=== PATIENT | female | born 1950 | race Caucasian/White ===

== ENCOUNTER 2023-12-09 10:04 | Day surgery (SDC) | payer MEDICARE ==
[2023-12-09] MEDS ORDERED: LORazepam 0.5 MG Tab PO ONE (11:30)
[2023-12-09] MEDS: LORazepam 0.5 MG Tab PO ONE (11:32)
[2023-12-09] MEDS: Polymyxin B/Trimethoprim 10 ML Bottle EYERT SCH (11:54)
[2023-12-09] MEDS: Brimonidine 0.2% Ophth Soln 5 ML Bottle EYERT SCH (11:58)
[2023-12-09] MEDS: Phenylephrine 2.5% Ophth Soln 2 ML Bot EYERT SCH (12:03)
[2023-12-09] MEDS: Tropicamide 1% Ophth Soln 3 ML Bottle EYERT SCH (12:06)
[2023-12-09] MEDS: Tetracaine HCl/PF 0.5% 4 ML Bottle EYEBOTH SCH (12:42)
[2023-12-09] MEDS: Lidocaine 1% PF 2 ML SDV INJECT SCH (13:01)
[2023-12-09] MEDS: Pilocarpine 4% Ophth Soln 15 ML Bot EYERT SCH (13:16)
[2023-12-09 13:31] VITALS: BP 153/74; PULSE 59
[2023-12-09] MEDS: Cefuroxime 10 MG/ML SYRINGE EYERT SCH (13:42)
== END 2023-12-09 13:25 | disposition home or self-care (01) ==
LOC: JD.SDS 10:04
PROVIDERS: ATTEND Ophthalmology
DX: H25.813 Combined forms of age-related cataract, bilateral (principal); E78.2 Mixed hyperlipidemia; M81.0 Age-related osteoporosis without current pathological fracture; Z79.899 Other long term (current) drug therapy
CPT/HCPCS: 66984; J0697; A9270-GY; J3490

== ENCOUNTER 2024-01-13 12:44 | Day surgery (SDC) | payer MEDICARE, OTHER ==
[2024-01-13] MEDS: Polymyxin B/Trimethoprim 10 ML Bottle EYELF SCH (14:14)
[2024-01-13] MEDS: Brimonidine 0.2% Ophth Soln 5 ML Bottle EYELF SCH (14:19)
[2024-01-13] MEDS: Phenylephrine 2.5% Ophth Soln 2 ML Bot EYELF SCH (14:24)
[2024-01-13] MEDS: Tropicamide 1% Ophth Soln 3 ML Bottle EYELF SCH (14:29)
[2024-01-13] MEDS: LORazepam 1 MG Tab PO ONE (14:51)
[2024-01-13] MEDS: Tetracaine HCl/PF 0.5% 4 ML Bottle EYEBOTH SCH (15:25)
[2024-01-13] MEDS: Lidocaine 1% PF 2 ML SDV INJECT SCH (15:50)
[2024-01-13] MEDS: Cefuroxime 10 MG/ML SYRINGE EYELF SCH (15:58)
[2024-01-13] MEDS: Pilocarpine 4% Ophth Soln 15 ML Bot EYELF SCH (15:59)
[2024-01-13 16:16] VITALS: BP 180/74; PULSE 56
== END 2024-01-13 16:10 | disposition home or self-care (01) ==
LOC: JD.SDS 12:44
PROVIDERS: ATTEND Ophthalmology
DX: H25.812 Combined forms of age-related cataract, left eye (principal); H21.81 Floppy iris syndrome; E78.2 Mixed hyperlipidemia; M81.0 Age-related osteoporosis without current pathological fracture; F41.9 Anxiety disorder, unspecified; Z79.899 Other long term (current) drug therapy; Z88.5 Allergy status to narcotic agent
CPT/HCPCS: 66984; A9270; J0697; J3490; V2632